=== PATIENT | female | born 1965 | race Caucasian/White ===

== ENCOUNTER 2023-11-18 10:42 | Emergency (ER) | payer SELFPAY ==
--- NOTE | 2023-11-18 10:58 | ED.SKABFB ---
HPI - Skin/Abscess/Foreign Bdy General Chief complaint: Extremity Problem,Nontraumatic Stated complaint: Lower right extremity pain and swelling Time Seen by Provider: 11/18/23 10:58 Source: patient Mode of arrival: ambulatory Limitations: no limitations History of Present Illness HPI narrative: Patient is a 58-year-old female that presents with right lower extremity pain and swelling. Patient reports it feels and looks like last time she had cellulitis. Patient states she ended up in the hospital last time for IV antibiotics. Denies any numbness, tingling or weakness to distal portion of the leg. Related Data Home Medications Medication Instructions Recorded Confirmed citalopram 10 mg tablet 10 mg PO DAILY 11/18/23 11/18/23 Allergies Allergy/AdvReac Type Severity Reaction Status Date / Time No Known Allergies Allergy Verified 11/18/23 11:15 Review of Systems Review of Systems: All systems reviewed & are unremarkable except as noted in HPI and below Constitutional: Constitutional: Denies body ache(s), Denies chills, Denies fatigue, Denies fever(s), Denies headache(s), Denies malaise and Denies weakness Eyes: Eyes: Denies blurry vision, Denies irritation and Denies loss of vision ENT: Denies otalgia, Denies headache(s), Denies nasal discharge, Denies sinus pain and Denies sore throat Cardiovascular: Cardiovascular: Denies chest pain, Denies irregular heart rhythm and Denies dyspnea Respiratory: Respiratory: Denies dyspnea Gastrointestinal: Gastrointestinal: Denies abdominal pain, Denies melena, Denies hematochezia, Denies diarrhea, Denies nausea and Denies vomiting Musculoskeletal: Musculoskeletal: Denies back pain, Denies myalgias and Denies arthralgias Integumentary/Breasts: Skin/Breast: Denies pruritus, Reports erythema, Denies rash, Reports skin pain and Reports skin swelling Neurologic: Denies headache(s), Denies loss of vision and Denies weakness Psychiatric: Psychiatric: Reports no additional psychiatric complaints Endocrine: Endocrine: Denies fatigue PMFSH Comments At time of signature, agree with nursing past medical, surgical, social and family history. There is no relevant family history pertinent to the presenting complaint. Exam Const: General: cooperative, healthy appearing, comfortable, no acute distress and well nourished Nutritional Appearance: well nourished Orientation/consciousness: patient oriented x3 Limitations: no limitations HENMT: Head: normal to inspection, normocephalic and atraumatic Ears: hearing grossly normal bilaterally and external ears normal Face/Nose/Sinus: Normal external nose present, normal facial exam and face symmetric Face and sinus: normal facial exam and face symmetric Mouth: Yes lip normal Eyes: General: appearance normal, both eyes and all related structures Alignment and Position: alignment normal and position normal Periorbital: periorbital findings normal Eyelids: eyelids normal Pupils: Equal, round and reactive pupils present EOM: EOMs intact bilaterally Neck: Neck: normal visual inspection, full ROM and supple Chest: Chest palpation & inspection: normal inspection of the chest Resp: Effort & Inspection: normal respiratory effort and able to speak in complete sentences Auscultation: clear to auscultation bilaterally Cardio: Rate: tachycardic Rhythm: regular rhythm Heart sounds: S1 normal heart sound present and S2 normal heart sound present GI: Inspection: normal to inspection Skin: General skin exam: normal color and no rashes or lesions noted Neuro: General: patient oriented x3 and moves all extremities Cranial nerves: Yes Equal, round and reactive pupils present Speech: normal speech Gait exam (Neuro): Normal gait present Extrem: General: normal to inspection, full ROM and no edema Right lower extremity: lower leg Details: erythema Location: of the mid lower leg Location: anteromedially and of the distal lower leg Location: anterome
[2023-11-18 11:14] VITALS: BP 122/71; PULSE 109; RESP 16; TEMP 36.8; O2SAT 98
[2023-11-18 11:16] VITALS: BP 122/71; PULSE 109; RESP 16; TEMP 36.8; O2SAT 98
== END 2023-11-18 11:45 | disposition home or self-care (01) ==
PROVIDERS: Emergency Provider Nurse Practitioner Family; PCP Family Medicine
DX: L03.115 Cellulitis of right lower limb (principal); F41.9 Anxiety disorder, unspecified; F32.A Depression, unspecified
CPT/HCPCS: 99213; G0463

== ENCOUNTER 2024-06-16 10:07 | Emergency (ER) | payer SELFPAY ==
--- NOTE | 2024-06-16 10:18 | ED_ITS ---
HPI - URI/Sore Throat General Chief Complaint: Upper Respiratory Infection Stated Complaint: coughing and congestion Time Seen by Provider: 06/16/24 10:30 Source: patient Mode of arrival: ambulatory Limitations: no limitations History of Present Illness HPI Narrative: Valerie is a 59-year-old female patient presenting to the clinic today with complaints of cough, chest congestion, and sinus congestion x3 weeks. She reports no fever or chills. Is coughing up green and brown phlegm. States she has lost sinus pressure. Denies any chest pain or shortness of breath. MD elicited complaint: sore throat and nasal congestion Related Data Home Medications ?Medication ?Instructions ?Recorded ?Confirmed ?Last Taken ?Type citalopram 10 mg tablet 10 mg PO DAILY 11/18/23 11/18/23 Unknown History Allergies Allergy/AdvReac Type Severity Reaction Status Date / Time No Known Allergies Allergy Verified 06/16/24 10:23 Review of Systems Review of Systems: Pertinent positives per HPI. Patient denies any fever, chills, rash, headache, visual changes, dizziness, shortness of breath, chest pain, palpitations, nausea, vomiting, diarrhea, constipation, abdominal pain, or any urinary issues. PMFSH Comments At the time of my signature, I reviewed and agree with the nursing past medical, surgical, social, and family history. There is no relevant family history pertinent to the patient complaint. Exam Narrative: General: Well-developed, obese, in no apparent distress Head: Normocephalic, atraumatic Eyes: Pupils equally round and reactive to light bilaterally, EOM intact, sclera and conjunctive clear, no discharge, lids normal Ears: TMs intact and congested, ear canals clear, no drainage, grossly hearing normal. Nose: Nares patent, yellow nasal discharge, moderate inflammation, maxillary sinus tenderness. Mouth: Oral pharynx red without lesions or masses, good dentition, MMM. Postnasal drip Neck: Supple, trachea midline, no enlargement of anterior or posterior cervical nodes, no thyroid masses or goiter palpable. Cardio: Regular rate and rhythm, s1 and s2 normal, no murmur appreciated. Resp: Faint expiratory wheezing and rhonchi, no rales or rubs Course Course Emergency Course: Portions of this record may have been created with voice recognition software. Level of Care: Express Care Visit Vital Signs Vital signs: Vital signs reviewed MDM - URI/Sore Throat MDM Narrative Medical decision making narrative: At the time of visit patient is resting comfortably on the exam table. Patient appears to be nontoxic. Plan: I suspect patient has sinusitis bronchitis. Prescription for albuterol inhaler, prednisone, doxycycline, and Tessalon Perles was sent to the pharmacy. Supportive measures were discussed with the patient and they voiced understanding discharge instructions and agrees to treatment plan. Return precautions reviewed Differential Diagnosis Differential diagnosis: Likely upper respiratory infection, otitis media, sinusitis, viral infection, bronchitis, influenza, pharyngitis and other (COVID) Discharge Plan Discharge Clinical Impression: Sinobronchitis Patient Disposition: Home, Self-Care Condition: Stable Instructions: Antibiotic Form, Acute Bronchitis (ED), Rhinosinusitis (ED) Additional Instructions: Take prescription medications only as prescribed-doxycycline, Tessalon Perles, prednisone, and albuterol inhaler Increase fluids and stay well hydrated Tylenol/motrin for pain/fever Flonase and OTC antihistamines as directed Vicks vapor rub to open sinuses Sinus rinses for congestion Cepacol spray, cough drops, throat lozenges, warm tea with honey/lemon, gargle salt water to soothe throat BRAT diet for diarrhea Clear liquids x 24 hours then advance as tolerated for nausea/vomiting Go to the ED if you develop a worsening in your condition- high fever not controlled by Tylenol or Motrin, dehydration, weakness, lethargy, shortness of breath, or chest pain. Follow up with your PCP in 3-5 days if symptoms persist. Patient Language: Egyptian Prescriptions: New benzonatate 200 mg capsule 200 mg PO TID 7 Days Qty: 21 0RF prednisone 20 mg tablet 40 mg PO DAILY 5 Days Qty: 10 0RF doxycycline monohydrate 100 mg capsule 100 mg PO BID 10 Days Qty: 20 0RF albuterol sulfate 90 mcg/actuation HFA aerosol inhaler 2 puff inhalation Q4-6H PRN (Reason: shortness of breath or wheezing) 30 Days Qty: 8.5 0RF No Action citalopram 10 mg tablet 10 mg PO DAILY clindamycin HCl 300 mg capsule 300 mg PO Q8H 10 Days Qty: 30 0RF doxycycline monohydrate 100 mg tablet 100 mg PO BID 10 Days Qty: 20 0RF Follow-up/Referrals: Harms,Vincenzo Boykin M.D. [Primary Care Provider] - Time of Disposition: 10:35 Quality NIHSS Nursing Documentation ED NIHSS nursing documentation: reviewed/agree
[2024-06-16 10:24] VITALS: BP 143/87; PULSE 97; RESP 20; TEMP 36.1; O2SAT 97
== END 2024-06-16 10:38 | disposition home or self-care (01) ==
PROVIDERS: Emergency Provider Nurse Practitioner Family; PCP Family Medicine
DX: J32.9 Chronic sinusitis, unspecified (principal); J40 Bronchitis, not specified as acute or chronic; F41.9 Anxiety disorder, unspecified; F32.A Depression, unspecified
CPT/HCPCS: 99213; G0463

== ENCOUNTER 2025-03-07 08:03 | Emergency (ER) | payer OTHER, SELFPAY ==
--- OUTSIDE RECORDS SUMMARY | 2025-03-07 08:09 | XMS_ITS | Encounter Summary ---
Author Organization [facility] Address [address] [place] [address] Care Team Providers Care Class A Regional Drivers Name Role Phone Vincenzo Valencia MD Primary Care Provider [phone] Gael Espinal MD Primary Care Provider [phone]- [phone] Vincenzo Valencia MD Primary Care Provider [phone] Encounter Details Date Type Department Care Team (Late st Contact Info) Description 08/26/2021 Telephone [facility] [address] [place] [id number] Cristine Tony, MARVA Social History Tobacco Use Types Packs/Day Years Used Date Smoking Tobacco: Every Day Cigarettes Smokeless Tobacco: Never Comments:Smoking History Pac ks/day: 0.5 Packs Alcohol Use Standard Drinks/Week Comments No 0 (1 standard drink = 0.6 oz pur e alcohol) PHQ-2 Answer Date Recorded PHQ-2 Total Score (If total score is 3 or more points, staff should administer the PHQ-9) 0 08/18/2021 Comments No Sex and Gender Information Value Date Recorded Sex Assigned at Not on file Legal 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 Gender Identity Female 08/28/2023 8:07 PM CDT Sexual Orientation Not on file documented as of this encounter Plan of Treatment Not on file documented as of this encounter Visit Diagnoses Not on filedocumented in this encounter Care Teams Class A Regional Drivers Relationship Specialty Start Date End Date Vincenzo [place] [address] [address] PCP - General Family Medicine 08/18/21 03/11/23 Gael Espinal MD [address] [facility] [place] [address] PCP - General Obstetrics and Gynecology 03/12/2308/05 Vincenzo Valencia MD [address] [place] [address] PCP - General Family Medicine 08/30/23 documented as of this encounter
--- OUTSIDE RECORDS SUMMARY | 2025-03-07 08:09 | XMS_ITS | Clinical Summary ---
Author Organization [facility] Address [address] [place] [address] Phone Care Team Providers Care Animal Care Giver Name Role Phone Provider, None Primary Care Provider Unavailabl e Social History Tobacco Use Types Packs/Day Years Used Date Smoking Tobacco: Never Assessed Comments No Sex and Gender Information Value Date Recorded Sex Assigned at Not on file Legal Sex Female 7:05 PM CDT Gender Identity Not on file Sexual Orientation Not on file Plan of Treatment Health Maintenance Due Date Last Done Comments Hepatitis C Virus (HCV) Screening 1966 Hepatitis B Immunization (1 of 3 - 19+ 3-dose series) 1985 Pap Smear 1987 Cervical Cancer Screening (CCS) 1996 HPV/Cotest 1996 Cologuard 2011 Colonoscopy 2011 Pneumococcal Immunization (5 0+ years) (1 of 1 - PCV) 2016 Zoster Immunization (1 of 2) 2016 Colorectal Cancer Screening 05/15/2020 Immunochemical Fecal Occult Blood 05/15/2020 05/15/2019 Influenza Immunization (#1) 2025 SARS-COV-2 Immunization ( - season) 2025 Respiratory Syncytial Virus (RSV) Immunization (Adult) (1 - 1-dose 75+ series) 2041 DTaP/Tdap/Td Immunization Discontinued 06/30/2015 TdaP Immunization Completed 06/30/2015 Mammogram Discontinued 05/19/2019, 05/01/2018 Human Papillomavirus (HPV) Immunization Aged Out No longer eligible based on patient's age to complete this topic Meningococcal Immunization (ACWY) Aged Out No longer eligible based on patient's age to complete this topic Rotavirus Immunization Aged Out No lo nger eligible based on patient's age to complete this topic Procedures Procedure Name Priority Date/Time Associated Diagnosis Comments VIANNEY SCREENING BILATERAL DIGITAL W CAD W EMILIA Routine 05/19/2019 8:38 AM Visit for screening mammogram from Last 3 Months or Most Recently Relevant to Health Maintenance Results * VIANNEY SCREENING BILATERAL DIGITAL W CAD W EMILIA (05/19/2019 8:38 AM ) Anatomical Region Laterality Modality breast Bilateral Mammography 05/19/2019 8:15 AM Narrative 05/21/2019 11:58 AM - VIANNEY SCREENING BILATERAL DIGITAL W CAD W EMILIA BILATERAL DIGITAL SCREENING MAMMOGRAM 3D/2D WITH CAD WITH MEDIOLATERAL OBLIQUE CRANIOCAUDAL: 05/19/2019 The study was acquired using digital technology and interpreted from soft copy. Current study was also evaluated with ICAD version 7.2. CLINICAL: Routine screening. Patient has no complaints. No personal history of cancer. No family history of breast cancer. COMPARISONS: Comparison is made to exams dated: 05/01/2018, 04/13/2014, and 09/27/2011 [facility]. BREAST TISSUE:The tissue of both breasts is predominantly fatty. FINDINGS: There is a biopsy clip in the left breast. No significant masses, calcifications, or other findings are seen in either breast. There has been no significant interval change. IMPRESSION: BI-RAD 1 NEGATIVE There is no mammographic evidence of malignancy. A 1 year screening mammogram is recommended. The patient has been or will be contacted. The patient will be entered into a reminder system with a target due date of 1 year for her next screening exam. Electronically signed by: Alpa tony/lily:05/21/2019 09:15:48 Chemical Tank Worker: Teodora YEUNG)(Maged), [facility] letter sent: Normal Exam Reading location: [facility] BI-RADS: 1 Negative Procedure Note Alpa Batista MD - 05/21/2019 - VIANNEY SCREENING BILATERAL DIGITAL W CAD W EMILIA BILATERAL DIGITAL SCREENING MAMMOGRAM 3D/2D WITH CAD WITH MEDIOLATERAL OBLIQUE CRANIOCAUDAL: 05/19/2019 The study was acquired using digital technology and interpreted from soft copy. Current study was also evaluated with ICAD version 7.2. CLINICAL: Routine screening. Patient has no complaints. No personal history of cancer. No family history of breast cancer. COMPARISONS: Comparison is made to exams dated: 05/01/2018, 04/13/2014, and 09/27/2011 [facility]. BREAST TISSUE:The tissue of both breasts is predominantly fatty. FINDINGS: There is a biopsy clip in the left breast. No significant masses, calcifications, or other findings are seen in either breast. There has been no significant interval change. IMPRESSION: BI-RAD 1 NEGATIVE There is no mammographic evidence of malignancy. A 1 year screening mammogram is recommended. The patient has been or will be contacted. The patient will be entered into a reminder system with a target due date of 1 year for her next screening exam. Electronically signed by: Alpa Batista M.D. rb/penrad:05/21/2019 09:15:48 Chemical Tank Worker: Teodora JOAQUIN(Shannon)(Maged), [facility] letter sent: Normal Exam Reading location: [facility] BI-RADS: 1 Negative Gael Espinal MD IMG MAMMO ORDERABLES Final Result from Last 3 Months or Most Recently Relevant to Health Maintenance Insurance Care Teams Animal Care Giver Relationship Specialty Start Date End Date Provider, None [place] PCP - General 05/01/18
--- OUTSIDE RECORDS SUMMARY | 2025-03-07 08:09 | XMS_ITS | Clinical Summary ---
Author Organization [facility] Address [address] [place] [address] Care Team Providers Care Steam Fitter Supervisor Maintenance Name Role Phone Vincenzo Valencia MD Primary Care Provider [phone] Allergies No known active allergies Medications multivitamin with iron tablet Take 1 tablet by mouth daily Active citalopram (CeleXA) 10 mg tablet Take 1 tablet (10 mg total) by mouth daily 90 tablet 1 02/05/2025 6 Active Active Problems Problem Noted Date Diagnosed Date BMI 40.0-44.9, adult 09/04/2024 Assessment & Plan (09/04/2024 8:12 AM CDT): Encourage 150min/week aerobic exercise. Healthy food choices. COngratulate on walking program with SOP Morbid obesity with BMI of 40.0-44.9, adult 0406/2024 Assessment & Plan (09/04/2024 8:12 AM CDT): As above. Lipid screening 09/04/2024 Assessment & Plan (09/04/2024 8:13 AM CDT): Labowkr ordered and pending. Annual physical exam 09/04/2024 Assessment & Plan (09/04/2024 8:13 AM CDT): FOcus of exam is preventative in nature. Reviewed immunization, reivewed sun/skin cancer screening. Reivewed colon/breast cancer screening. Reviewed lung cancer screening with LDCT and will follow response. Tobacco dependence 09/04/2024 Assessment & Plan (09/04/2024 8:14 AM CDT): Contemplative. Reivewed LDCT lung cancer screening and will montior repsonse. Pastient interested in pursuing when insurance becomes active. Recurrent major depression 08/30/2023 Assessment & Plan (09/04/2024 8:12 AM CDT): Continues on citalopram and will monitor response. NO side effects, strong family support and will monitor response. No pathologic diagnosis 10/20/2013 Overview (09/10/2016): No diagnosis Immunizations Immunization Administration Dates Next Due Influenza, Unspecified 09/04/2024(Deferr ed: Patient Refused),08/30/2023(Deferred: Patient Refused),06/06/2023(Deferred: Patient Refused),06/06/2022(Deferred: Patient Refused),03/19/2022(Deferred: Patient Refused),08/18/2021(Deferred: Patient Refused),06/06/2020(Deferred: Patient Refused) Tdap 06/30/2015 Surgical History Surgery Date Site/Laterality Comments OTHER SURGICAL HISTORY Menorrhagia: endometrial ablation OTHER SURGICAL HISTORY Abnl pap: Cryotherapy of the cervix OTHER SURGICAL HISTORY L/S BTL BREAST LUMPECTOMY Left benign, around 2009 SKIN LESION EXCISION removal skin lesion cheek Medical History Medical History Date Comments Hx Other Medical Menorrhagia Hx Other Medical Abnl pap Family History Medical History Relation Name Comments Macular degeneration Maternal Grandmother macular degeneration; Breast cancer Neg Hx Colon cancer Neg Hx Ovarian cancer Neg Hx Uterine cancer Neg Hx Relation Name Status Comments Maternal Grandmother Social History Tobacco Use Types Packs/Day Years Used Date Smoking Tobacco: Every Day Cigarettes 0.8 34.8 Started: 1990 Smokeless Tobacco: Never Tobacco Cessation:Ready to Q uit: Not Asked; Counseling Given: Not Answered Comments:Smoking History Packs/day: 0.5 Packs Alcohol Use Standard Drinks/Week Comments No 0 (1 standard drink = 0.6 oz pur e alcohol) PHQ-2 Answer Date Recorded PHQ-2 Total Score (If total score is 3 or more points, staff should administer the PHQ-9) 0 09/04/2024 Comments No Sex and Gender Information Value Date Recorded Sex Assigned at Not on file Legal Sex Female 1:41 AM 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 Gender Identity Female 08/28/2023 8:07 PM CDT Sexual Orientation Not on file Obstetrics History Para Term AB IAB SAB Ectopic Multiple Livin g Live Births 0 0 0 0 0 0 0 0 0 0 0 Last Filed Vital Signs Vital Sign Reading Time Taken Comments Blood Pressure 126/80 10/30/2024 10:04 AM CDT Pulse 74 09/04/2024 7:56 AM CDT Temperature 36.8 C (98.2 F) 09/04/2024 7:56 AM CDT Respiratory Rate - - Oxygen Saturation 98% 09/04/2024 7:56 AM CDT Inhaled Oxygen Concentration - - Weight 122.5 kg (270 lb) 10/30/2024 10:04 AM CDT Height 167.6 cm (5' 6) 10/30/2024 10:04 AM CDT Body Mass Index 43.58 10/30/2024 10:04 AM CDT Plan of Treatment Health Maintenance Due Date Last Done Comments Hepatitis C Screening 1965 Hepatitis B Screening 1984 Pneumococcal vaccine <65 (1 of 2 - PCV) 1985 Zoster Vaccine (1 of 2) 2016 Lung Cancer Screening 01/09/2024 01/08/2023, 022 Breast Cancer Screening-Mammogram 03/12/2024 03/12/2023, 07/11/2021, 05/19/2019, Additional history exists Colon Cancer Screening-DNA Stool 09/06/2024 09/07/19 22, 05/15/2016 Influenza Vaccine (#1) 2025 DTaP/Tdap/Td Vaccine (2 - Td or Tdap) 06/30/2025 06/30/2015 Depression Screening 09/04/2025 09/04/2024, 08/30/2023, 09/20/2022, Additional history exists Cervical Cancer Screening 10/30/20252024, 09/20/2022, 06/16/2021, Additional history exists Regular Well Visit/Exam 18-64 10/30/2025, 09/04/2024, 09/20/2022, Additional history exists Colon Cancer Screening-CT Colonography Discontinued 05/15/2016 Colon Cancer Screening-Colonoscopy Discontinued 05/15/2016 Colon Cancer Screening-Sigmoidoscopy Discontinued 05/15/2016 Colon Cancer Screening-FIT Discontinued 09/06/2021, Procedures Procedure Name Priority Date/Time Associated Diagnosis Comments PAP WITH REFLEX TO HIGH RISK HPV Routine 10/30/2024 8:38 AM CDT Well woman exam SCREENING MAMMOGRAM BILATERAL W MALCOM Schedule Routine, Read Routine (OP Routine) 03/12/2023 9:15 AM CDT Screening mammogram, encounter for CT LUNG CANCER SCREENING Schedule Routine, Read Routine (OP Routine) 01/08/2023 8:26 AM CDT Personal history of nicotine dependence STOOL DNA COLOGUARD Routine 09/06/2021 5:45 AM CDT Colon cancer screening HM COLONOSCOPY Routine 05/15/2016 from Last 3 Months or Most Recently Relevant to Health Maintenance Results * Pap with reflex to High Risk HPV and Genotyping (Cytology Component) (10/30/2024 8:38 AM CDT) Thin prep (Pap test) 10/30/2024 8:38 AM CDT 10/30/2024 8:38 AM CDT Narrative PATHOLOGY CH - 11/01/2024 3:58 PM CDT [facility] Department of Pathology [address] [place] [id number] Final Report Note to Patients: This report may contain a detailed description of human tissue sent by a health care provider to the laboratory for pathologic evaluation. The content of this report is essential for diagnosis and may provide important critical findings. This information may be unfamiliar to patients to review without a medical professional present. It is advised that the patient review this report in the presence of a health care provider who can answer questions and explain the details. Patient Name: VALERIE QUINONES Address: [address] [place] [id number] Gender: F : 1965 (Age: 59) Service: Location: [facility] #: [id number] Patient Type: SPECIMEN Taken: 10/30/2024 Received: 10/30/2024 Accessioned:: 10/31/2024 Reported: 11/01/2024 Physician(s): Raman Hernández M.D. Diagnosis: SOURCE OF SPECIMEN Imaged Thinprep Pap Test w/ Reflex HPV - Township Clerk Cytologic Material: STATEMENT OF ADEQUACY - Satisfactory for evaluation; endocervical/transformation zone component present GENERAL CATEGORIZATION: - Negative for intraepithelial lesion or malignancy JOSE Rosen(ASCP) Report Electronically Reviewed and Signed Out By JOSE Rosen(ASCP) 11/01/2024 15:58:25Specimen(s) Received: A: Imaged Thinprep Pap Test w/ Reflex HPV - Township Clerk Cytologic Material Clinical History: Menstrual History: Ablation The Pap test is a screening test used to aid in the detection of cervical cancer and its precursors. It should not be the sole means by which malignant and premalignant lesions are diagnosed. Both false negative and false positive results may occur. It also has poor sensitivity for the detection of endometrial lesions and should not be used to evaluate suspected endometrial abnormalities. For these reasons it is most important to obtain Pap tests at regular intervals. The performance characteristics of some immunohistochemical stains, fluorescence in-situ hybridization tests and immunophenotyping by flow cytometry cited in this report (if any) were determined by the Surgical Pathology Department at [facility] as part of an ongoing quality internship program and in compliance with federally mandated regulations drawn from the Clinical Laboratory Improvement Act of 1988 (CLIA '88). Some of these tests rely on the use of analyte specific reagents and are subject to specific labeling requirements by the US Food and Drug Administration. Such diagnostic tests may only be performed in a facility that is certified by the Department of Health and Human Services as a high complexity laboratory under CLIA '88. The FDA has determined that such clearance or approval is not necessary. This test is used for clinical purposes. It should not be regarded as investigational or for research. Nevertheless, federal rules concerning the medical use of analyte specific reagents require that the following disclaimer be attached to the report: This test was developed and its performance characteristics determined by the Surgical Pathology Department [facility]. It has not been cleared or approved by the U. S. Food and Drug Administration. Gael Espinal MD LAB CYTOLOGY ORDERABLES Fi nal Result PATHOLOGY [id number] [place] [address] * Screening Mammogram Bilateral W Malcom (03/12/2023 9:15 AM CDT) Anatomical Region Laterality Modality Breast Bilateral Mammography Impressions 03/12/2023 3:34 PM CDT BI-RADS ATLAS category (overall): 1 - Negative There is no mammographic evidence of malignancy. A 1 year screening mammogram is recommended. The patient has been or will be contacted. We recommend annual screening mammography for women at average risk of breast cancer beginning at age 40, based on guidelines of the [place] College of Radiology (ACR Practice Parameter for the Performance of Screening and Diagnostic Mammography) and [place] College of Obstetricians and Gynecologists. For women with and elevated risk of breast cancer, please refer to the ACR Practice Parameter for specific screening recommendations. The patient will be entered into a reminder system with a target due date of 1 year for her next screening exam. Narrative 03/12/2023 3:34 PM CDT Screening Mammogram Bilateral W Malcom: 03/12/23 The study was acquired using full field digital technology and interpreted from soft copy. 2D digital mammographic views, as well as 3D digital tomosynthesis were performed in the CC and MLO projections. CLINICAL: Screening mammogram, encounter for. No relevant medical history has been documented for this patient. History of breast cancer in Neg Hx. COMPARISONS: 07/11/2021 SCREENING MAMMOGRAM BILATERAL W MALCOM 05/19/2019 Breast Imaging Outside Reference 05/01/2018 Breast Imaging Outside Reference 04/13/2014 Breast Imaging Outside Reference BREAST TISSUE: The breasts are almost entirely fatty. FINDINGS: There is a biopsy clip in the left breast. No suspicious masses, suspicious calcifications, or other suspicious findings are seen within either breast. There has been no suspicious change. us Self Screening Mammogram IMG MAMMO PROCEDURES Fi nal Result * CT Lung Cancer Screening (01/08/2023 8:26 AM CDT) Anatomical Region Laterality Modality Chest N/A Computed Tomogra phy 01/10/2023 10:2 5 AM CDT Narrative 01/10/2023 10:53 AM CDT EXAM DESCRIPTION: CT LUNG CANCER SCREENING REASON FOR STUDY: Screening CT of the chest in a current smoker with a 23.25 pack year smoking history. Additional history: None. TECHNIQUE: Low dose CT scan of the chest was performed without intravenous contrast using helical scanning technique. The exam extends from the lung apices through the lung bases. Automatic exposure control was used as a dose optimization technique. NOTE: This study was performed for the specific purposes of lung cancer screening and is not an alternative to diagnostic chest CT. RADIATION DOSE: CT dose index volume (CTDIvol) = 2.36 mGy COMPARISON: 12/19/2021 FINDINGS: SMOKING RELATED LUNG DISEASE: Mild emphysema. LUNG NODULES: Stable 2 mm right upper lobe nodule (123). Stable 4 mm lingula nodule (138). OTHER: No consolidation, pleural effusion or pneumothorax. Prominent mediastinal lymph nodes are grossly stable. No hilar lymphadenopathy. The heart is normal in size. No significant coronary artery calcification. Aorta is normal caliber. Prominent axillary lymph nodes are unchanged. No chest wall mass is seen. Images of the upper abdomen demonstrate no gross abnormality. Bone windows demonstrate no suspicious lytic or sclerotic lesion. No acute fracture seen. IMPRESSION: 1. Grossly stable pulmonary nodules compared to 12/19/2021. Lung-RADS category 2: Benign appearance or behavior. Recommendation: Low dose Screening CT of chest in 12 months. THIS IS AN ELECTRONICALLY VERIFIED FINAL REPORT 01/10/2023 10:53 AM - Electronically signed by Dane Grover M.D. AG: MELANI Report ID: [id number] Reading Location: [id number] Procedure Note Dane Grover MD - 01/10/2023 EXAM DESCRIPTION: CT LUNG CANCER SCREENING REASON FOR STUDY: Screening CT of the chest in a current smoker with a 23.25 pack year smoking history. Additional history: None. TECHNIQUE: Low dose CT scan of the chest was performed without intravenous contrast using helical scanning technique. The exam extends from the lung apices through the lung bases. Automatic exposure control was used as adose optimization technique. NOTE: This study was performed for the specific purposes of lung cancer screening and is not an alternative to diagnostic chest CT. RADIATION DOSE: CT dose index volume (CTDIvol) = 2.36 mGy COMPARISON: 12/19/2021 FINDINGS: SMOKING RELATED LUNG DISEASE: Mild emphysema. LUNG NODULES: Stable 2 mm right upper lobe nodule (123). Stable 4 mm lingula nodule (138). OTHER: No consolidation, pleural effusion or pneumothorax. Prominent mediastinal lymph nodes are grossly stable. No hilar lymphadenopathy.The heart is normal in size. No significant coronary artery calcification.Aorta is normal caliber. Prominent axillary lymph nodes are unchanged. Nochest wall mass is seen. Images of the upper abdomen demonstrate no gross abnormality. Bone windows demonstrate no suspicious lytic or sclerotic lesion. No acute fracture seen. IMPRESSION: 1. Grossly stable pulmonary nodules compared to 12/19/2021. Lung-RADS category 2: Benign appearance or behavior. Recommendation: Low dose Screening CT of chest in 12 months. THIS IS AN ELECTRONICALLY VERIFIED FINAL REPORT 01/10/2023 10:53 AM - Electronically signed by Dane Grover M.D. AG: MELANI Report ID: [id number] Reading Location: [place] [address] Vincenzo Valencia MD [facility] [place] PROCEDURES Final R esult * Stool DNA - Cologuard (09/06/2021 5:45 AM CDT) Stool DNA - Cologuard Negative Negative [facility] (CLIA #:[id number]) Comment: NEGATIVE TEST RESULT. A negative Cologuard result indicates a low likelihood that a colorectal cancer (CRC) or advanced adenoma (adenomatous polyps with more advanced pre-malignant features) is present. The chance that a person with a negative Cologuard test has a colorectal cancer is less than 1 in 1500 (negative predictive value >99.9%) or has an advanced adenoma is less than 5.3% (negative predictive value 94.7%). These data are based on a prospective cross-sectional study of 10,000 individuals at average risk for colorectal cancer who were screened with both Cologuard and colonoscopy. (Anastacia Shepherd al, N Engl J Med 2014;370(14):0137-7342) The normal value (reference range) for this assay is negative. COLOGUARD RE-SCREENING RECOMMENDATION: Periodic colorectal cancer screening is an important part of preventive healthcare for asymptomatic individuals at average risk for colorectal cancer. Following a negative Cologuard result, the Australian Cancer Society and U.S. Multi-Society Task Force screening guidelines recommend a Cologuard re-screening interval of 3 years. References: Australian Cancer Society Guideline for Colorectal Cancer Screening: https://www.cancer.org/cancer/oufjr-geosnp-adcsqg/ixsoclnnm-mcctmsvkg-oodxazq/ac s-rec ommendations.html.; Iraj DK, Vernon MYERS, Mitchell GonzalezK, Colorectal Cancer Screening: Recommendations for Physicians and Patients from the U.S. Multi-Society Task Force on Colorectal Cancer Screening , Am J Gastroenterology 2017; 112:2534-9519. TEST DESCRIPTION: Composite algorithmic analysis of stool DNA-biomarkers with hemoglobin immunoassay. Quantitative values of individual biomarkers are not reportable and are not associated with individual biomarker result reference ranges. Cologuard is intended for colorectal cancer screening of adults of either sex, 45 years or older, who are at average-risk for colorectal cancer (CRC). Cologuard has been approved for use by the U.S. FDA. The performance of Cologuard was established in a cross sectional study of average-risk adults aged 50-84. Cologuard performance in patients ages 45 to 49 years was estimated by sub-group analysis of near-age groups. Colonoscopies performed for a positive result may find as the most clinically significant lesion: colorectal cancer [4.0%], advanced adenoma (including sessile serrated polyps greater than or equal to 1cm diameter) [20%] or non- advanced adenoma [31%]; or no colorectal neoplasia [45%]. These estimates are derived from a prospective cross-sectional screening study of 10,000 individuals at average risk for colorectal cancer who were screened with both Cologuard and colonoscopy. (Anastacia Bryan et al, N Engl J Med 2014;370(14):2455-5201.) Cologuard may produce a false negative or false positive result (no colorectal cancer or precancerous polyp present at colonoscopy follow up). A negative Cologuard test result does not guarantee the absence of CRC or advanced adenoma (pre-cancer). The current Cologuard screening interval is every 3 years. (Australian Cancer Society and U.S. Multi-Society Task Force). Cologuard performance data in a 10,000 patient pivotal study using colonoscopy as the reference method can be accessed at the following location: www.[employer].NearVerse/results. Additional description of the Cologuard test process, warnings and precautions can be found at www.cologuard.[email or web address]. Stool 09/06/2021 5:45 AM CDT 09/08/2021 11:30 AM CDT Vincenzo Valencia MD LAB BODY FLUIDS AND STOOL S ORDERABLES Final Result [facility] (CLIA #:[id number]) [place] [address] * COLONOSCOPY (05/15/2016) Colonoscopy Normal Comment:Cologard Historical Provider HEALTH MAINTENANCE Final Result from Last 3 Months or Most Recently Relevant to Health Maintenance Insurance * Guarantor: Valerie Quinones Account Type Relation to Patient Date of Phone Billing Address Personal/Family Self [address] [address] REPLACED BY [facility] * Guarantor: Valerie Quinones Account Type Relation to Patient Date of Phone Billing Address Personal/Family Self [address] [address] Care Teams Steam Fitter Supervisor Maintenance Relationship Specialty Start Date End Date Vincenzo Valencia MD [address] [place] [address] PCP - General Family Medicine 08/30/23
--- OUTSIDE RECORDS SUMMARY | 2025-03-07 08:09 | XMS_ITS | Clinical Summary ---
Author Organization [facility] Address [address] [place] [address] Care Team Providers Care Dean Name Role Phone Unavailable Primary Care Provider Unavailabl e Source Comments [facility],non-owned Affiliates and Associated Physician Practices is amultiple site organization consisting of ambulatory clinics and hospital sitesin [place], [place], [place] and [place]. This disclosure is being madepursuant to the Care Everywhere program and may not contain all information available regarding this patient. Last updated 18.[employer] Allergies No known active allergies Medications * Be aware that medications may not be up to date on this document. Alwaysverify current medications with the patient. 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 Gender Identity Not on file Sexual Orientation Not on file Last Filed Vital Signs Vital Sign Reading Time Taken Comments Blood Pressure 138/88 06/16/2019 11:25 AM BOOTH USHER Pulse 93 06/16/2019 11:25 AM BOOTH USHER Temperature 36.8 C (98.3 F) 06/16/2019 11:25 AM BOOTH USHER Respiratory Rate 16 06/16/2019 11:25 AM BOOTH USHER Oxygen Saturation 98% 06/16/2019 11:25 AM BOOTH USHER Inhaled Oxygen Concentration - - Weight 127 kg (280 lb) 06/16/2019 11:25 AM BOOTH USHER Height 170.2 cm (5' 7) 06/16/2019 11:25 AM BOOTH USHER Body Mass Index 43.85 06/16/2019 11:25 AM BOOTH USHER Plan of Treatment Health Maintenance Due Date Last Done Comments COLOGUARD (AGES 45-75) - COL ON CA SCREENING 1965 COLON MONITORING 1965 COLONOSCOPY - COLON CA SCREENING 1966 CT COLONOGRAPHY - COLON CA SCREENING 1965 FLEX SIG - COLON CA SCREENING 1965 LIPID TESTING 1965 HIV SCREENING 1981 HEPATITIS C SCREENING 03/23/1984 DTAP/TDAP/TD VACCINES (1 - Tdap) 1985 HEPATITIS B VACCINE (1 of 3 - 19+ 3-dose series) 1985 PNEUMOCOCCAL VACCINE 50+ (1 of 1 - PCV) 2016 ZOSTER VACCINE (1 of 2) 2016 SCREENING FOR DIABETES 05/27/2019 Colorectal Cancer Screening 05/15/2020 FIT - COLON CA SCREENING 05/15/2020 05/15/2019 MAMMOGRAM 05/19/2021 05/19/2019 DEPRESSION SCREENING 06/06/2024 COVID-19 VACCINE (1 - 2023-2 5 season) 2025 INFLUENZA VACCINE (#1) 2025 HIB VACCINE Aged Out No longer eligi ble based on patient's age to complete this topic HPV VACCINE Aged Out No longer eligi ble based on patient's age to complete this topic MENINGOCOCCAL (Group B) VACC INE SHARED DECISION-MAKING Aged Out No longer eligibl e based on patient's age to complete this topic MENINGOCOCCAL GROUPS A/C/Y/W VACCINE Aged Out No longer eligible b ased on patient's age to complete this topic Insurance
[2025-03-07 08:15] VITALS: BP 142/68; PULSE 90; RESP 18; TEMP 36.8; O2SAT 99
--- NOTE | 2025-03-07 08:27 | ED.URI ---
HPI - URI/Sore Throat General Chief Complaint: Upper Respiratory Infection Stated Complaint: sinus Time Seen by Provider: 03/07/25 08:20 Source: patient and RN notes reviewed Mode of arrival: ambulatory Limitations: no limitations History of Present Illness HPI Narrative: Patient presents today with a 9-10 day history of cough, nasal congestion green nasal drainage, sinus pressure. Denies fever or shortness of breath. She has tried Mucinex, Sudafed, and DayQuil without much improvement. No history of asthma or COPD. Patient smokes half pack per day. Related Data Home Medications ?Medication ?Instructions ?Recorded ?Confirmed ?Last Taken ?Type citalopram 10 mg tablet 10 mg PO DAILY 11/18/23 11/18/23 Unknown History Allergies Allergy/AdvReac Type Severity Reaction Status Date / Time No Known Allergies Allergy Verified 03/07/25 08:16 [facility] Social History Social History (Updated 03/07/25 @ 08:28 by Lakeshia Last, [facility], ) Smoking status: Current every day smoker Tobacco type: cigarettes Comments At time of signature, I have reviewed and agree with nursing past medical, surgical, social and family history unless otherwise noted. Please see nursing chart for further information. There is no relevant family history pertinent to the presenting complaint Exam Narrative: GENERAL: Mildly ill-appearing, well-nourished, and in no acute distress. HEAD: Normocephalic, atraumatic. EYES: EOMI. No redness or drainage. Conjunctivae normal. ENT: Mucous membranes pink and moist. Nares congested with green purulent discharge. Bilateral frontal and maxillary sinus tenderness.. TMs normal bilaterally. Throat normal. Uvula midline. NECK: Normal AROM. Supple. No lymphadenopathy. CHEST: No respiratory distress. Clear to auscultation. HEART: Regular rate and rhythm. No murmur appreciated. EXTREMITIES: Normal range of motion. No edema. SKIN: Warm, dry, no rash. Capillary refill normal. Normal skin turgor. NEURO: No focal deficits. Alert and oriented x3. Gait steady. PSYCH: Normal affect. No signs of depression or anxiety. Course Course Level of Care: Express Care Visit Vital Signs Vital signs: Vital Signs Temperature 98.3 F 03/07/25 08:15 Pulse Rate 90 03/07/25 08:15 Respiratory Rate 18 03/07/25 08:15 Blood Pressure 142/68 H 03/07/25 08:15 Pulse Oximetry 99 03/07/25 08:15 Oxygen Delivery Room Air 03/07/25 08:15 Temperature 98.3 F 03/07/25 08:15 Pulse Rate 90 03/07/25 08:15 Respiratory Rate 18 03/07/25 08:15 Blood Pressure 142/68 H 03/07/25 08:15 Pulse Oximetry 99 03/07/25 08:15 Oxygen Delivery Room Air 03/07/25 08:15 Reviewed MDM - URI/Sore Throat MDM Narrative Medical decision making narrative: 59-year-old female presents today with a 9-10 day history of cough, nasal congestion green nasal drainage, sinus pressure. OTC medication without much improvement. Upon exam, patient has nasal congestion with purulent discharge, tender frontal and maxillary sinus tenderness bilaterally, and is mildly ill appearing. She will be treated with a course of Augmentin bacterial sinusitis. May continue OTC medication as needed. Recommend a steroid nasal spray. Vital signs stable. Patient agrees with plan. Anticipatory guidance given. Differential Diagnosis Differential diagnosis: Likely upper respiratory infection, sinusitis, viral infection, bronchitis and other (Pneumonia) Critical Care Time Critical Care Time Critical Care Time: No Discharge Plan Discharge Clinical Impression: Sinusitis Qualifiers: Sinusitis location: unspecified location Chronicity: acute Recurrence: non-recurrent Qualified Code(s): J01.90 - Acute sinusitis, unspecified Patient Disposition: Home Condition: Stable Instructions: Antibiotic Form, Sinusitis (ED) Additional Instructions: Please take the Augmentin as prescribed until gone. Continue OTC medication as needed for symptom control. Consider starting a steroid nasal spray such as Flonase. Follow-up with your PCP in 3 days if symptoms are not improving. Your blood pressure was elevated above 120/80 today at Urgent Care. This puts you above the threshold for follow up. Please schedule a followup visit with your personal physician as soon as possible, for further evaluation and treatment. Even blood pressure exceeding 120/80 may indicate pre-hypertension. Patient Language: Serbian Prescriptions: New amoxicillin-pot clavulanate 875-125 mg tablet 1 tablet PO Q12H 7 Days Qty: 14 0RF No Action citalopram 10 mg tablet 10 mg PO DAILY Follow-up/Referrals: Harms,Vincenzo K., M.D. [Primary Care Provider] Time of Disposition: 08:31
== END 2025-03-07 08:34 | disposition home or self-care (01) ==
PROVIDERS: Emergency Provider Nurse Practitioner; PCP Family Medicine
DX: J01.90 Acute sinusitis, unspecified (principal); F17.210 Nicotine dependence, cigarettes, uncomplicated
CPT/HCPCS: 99213; G0463

== ENCOUNTER 2025-04-27 09:43 | Emergency (ER) | payer OTHER, SELFPAY ==
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
[2025-04-27 09:34] VITALS: BP 168/90; PULSE 85; RESP 18; TEMP 36.6; O2SAT 98
--- OUTSIDE RECORDS SUMMARY | 2025-04-27 10:34 | XMS_ITS | Encounter Summary ---
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 Gender Identity Female 08/28/2023 8:07 PM CDT Sexual Orientation Not on file documented as of this encounter Plan of Treatment Not on file documented as of this encounter Visit Diagnoses Not on filedocumented in this encounter Care Teams Store Merchandiser Relationship Specialty Start Date End Date Vincen[place] [address] [address] PCP - General Family Medicine 08/18/21 03/11/23 Gael Espinal MD [address] [address] PCP - General Obstetrics and Gynecology 03/12/2308/05 Vincenzo Valencia MD [address] [place] [address] PCP - General Family Medicine 08/30/23 documented as of this encounter
--- OUTSIDE RECORDS SUMMARY | 2025-04-27 10:34 | XMS_ITS | Clinical Summary ---
Author Organization [facility] Address [address] [place] [address] Care Team Providers Care Systems Accountant Name Role Phone Unavailable Primary Care Provider Unavailabl e Source Comments [facility],non-owned Affiliates and Associated Physician Practices is amultiple site organization consisting of ambulatory clinics and hospital sitesin [place], [place], [place] and [place]. This disclosure is being madepursuant to the Care Everywhere program and may not contain all information available regarding this patient. 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 Gender Identity Not on file Sexual Orientation Not on file Last Filed Vital Signs Vital Sign Reading Time Taken Comments Blood Pressure 138/88 06/16/2019 11:25 AM CYLINDER INSPECTOR Pulse 93 06/16/2019 11:25 AM CYLINDER INSPECTOR Temperature 36.8 C (98.3 F) 06/16/2019 11:25 AM CYLINDER INSPECTOR Respiratory Rate 16 06/16/2019 11:25 AM CYLINDER INSPECTOR Oxygen Saturation 98% 06/16/2019 11:25 AM CYLINDER INSPECTOR Inhaled Oxygen Concentration - - Weight 127 kg (280 lb) 06/16/2019 11:25 AM CYLINDER INSPECTOR Height 170.2 cm (5' 7) 06/16/2019 11:25 AM CYLINDER INSPECTOR Body Mass Index 43.85 06/16/2019 11:25 AM CYLINDER INSPECTOR Plan of Treatment Health Maintenance Due Date Last Done Comments COLOGUARD (AGES 45-75) - COL ON CA SCREENING 1966 COLON MONITORING 1966 COLONOSCOPY - COLON CA SCREENING 1966 CT COLONOGRAPHY - COLON CA SCREENING 1966 Colorectal Cancer Screening 1966 FIT - COLON CA SCREENING 1966 FLEX SIG - COLON CA SCREENING 1966 LIPID TESTING 1966 HIV SCREENING 1981 HEPATITIS C SCREENING 03/23/1984 DTAP/TDAP/TD VACCINES (1 - Tdap) 1985 HEPATITIS B VACCINE (1 of 3 - 19+ 3-dose series) 1985 PAP SMEAR 1987 Cervical Cancer Screening 1996 PAP with HPV 1996 PNEUMOCOCCAL VACCINE 50+ (1 of 1 - PCV) 2016 ZOSTER VACCINE (1 of 2) 2016 SCREENING FOR DIABETES 05/27/2019 MAMMOGRAM 05/19/2021 05/19/2019 DEPRESSION SCREENING 06/06/2024 COVID-19 VACCINE (1 - 2024-2 6 season) 2025 INFLUENZA VACCINE (#1) 2025 HIB [...] patient's age to complete this topic Insurance [employer]
--- OUTSIDE RECORDS SUMMARY | 2025-04-27 10:34 | XMS_ITS | Clinical Summary ---
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 Patient Name: VALERIE QUINONES Address: [address] [place] [id number] Gender: F : 1965 (Age: 59) Service: Location: [facility] #: [id number] Patient Type: SPECIMEN Taken: 10/30/2024 Received: 10/30/2024 Accessioned:: 10/31/2024 Reported: 11/01/2024 Physician(s): Raman Hernández M.D. Diagnosis: SOURCE OF SPECIMEN Imaged Thinprep Pap Test w/ Reflex HPV - Lab Pack Chemist Cytologic Material: STATEMENT OF ADEQUACY - Satisfactory for evaluation; endocervical/transformation zone component present GENERAL CATEGORIZATION: - Negative for intraepithelial lesion or malignancy JOSE Rosen(ASCP) Report Electronically Reviewed and Signed Out By JOSE Rosen(ASCP) 11/01/2024 15:58:25Specimen(s) Received: A: Imaged Thinprep Pap Test w/ Reflex HPV - Lab Pack Chemist Cytologic Material Clinical History: Menstrual History: Ablation [...] determined by the Surgical Pathology Department at [facility] as part of an ongoing quality measurement specialist program and in compliance with federally mandated [...] characteristics determined by the Surgical Pathology Department [facility]. It has not been cleared or approved by the U. S. Food and Drug Administration. Gael Espinal MD LAB CYTOLOGY ORDERABLES Fi nal Result PATHOLOGY [address] [place] [address] * Screening Mammogram Bilateral W Malcom (03/12/2023 [...] age 40, based on guidelines of the [employer] (ACR Practice Parameter for the Performance of Screening and Diagnostic Mammography) and [employer]. For women [...] Dane Grover M.D. AG: MELANI Report ID: [id number] Reading Location: [id number] Procedure Note Dane Grover MD - 01/10/2023 [...] Dane Grover M.D. AG: MELANI Report ID: [id number] Reading Location: [place] [address] Vincenzo Valencia MD [facility] PROCEDURES Final R esult * Stool DNA - Cologuard (09/06/2021 5:45 AM CDT) Stool DNA - Cologuard Negative Negative [employer] (CLIA #:[id number]) Comment: NEGATIVE TEST RESULT. A negative Cologuard [...] (Anastacia Shepherd al, N Engl J Med 2014;370(14):7805-0128) The normal value (reference range) for this assay is negative. COLOGUARD RE-SCREENING RECOMMENDATION: Periodic colorectal cancer screening is an important part of preventive healthcare for asymptomatic individuals at average risk for colorectal cancer. Following a negative Cologuard result, the [place] [employer] and U.S. Multi-Society Task Force screening guidelines recommend a Cologuard re-screening interval of 3 years. References: [place] [employer] Guideline for Colorectal Cancer Screening: https://www.cancer.org/cancer/bbuhj-tjnvrd-emtioq/sovsrnevg-pcfeaqndr-icxnldu/ac s-rec ommendations.html.; Iraj DK, Vernon MYERS, Mitchell GonzalezK, Colorectal Cancer Screening: Recommendations for Physicians and Patients from the U.S. Multi-Society Task Force on Colorectal Cancer Screening , Am J Gastroenterology 2017; 112:3813-2057. TEST DESCRIPTION: Composite algorithmic analysis of stool [...] Bryan et al, N Engl J Med 2014;370(14):5734-5718.) Cologuard may produce a false negative or false positive result (no colorectal cancer or precancerous polyp present at colonoscopy follow up). A negative Cologuard test result does not guarantee the absence of CRC or advanced adenoma (pre-cancer). The current Cologuard screening interval is every 3 years. ([place] [employer] and U.S. Multi-Society Task Force). Cologuard performance data in a 10,000 patient pivotal study using colonoscopy as the reference method can be accessed at the following location: www.[employer]/results. Additional description of the Cologuard test process, warnings and precautions can be found at www.cologuard.com. Stool 09/06/2021 5:45 AM CDT 09/08/2021 11:30 AM CDT Vincenzo Valencia MD LAB BODY FLUIDS AND STOOL S ORDERABLES Final Result [facility] (CLIA #:[id number]) [place] [address] * COLONOSCOPY (05/15/2016) Colonoscopy Normal Comment:Cologard Historical Provider HEALTH MAINTENANCE Final Result from Last 3 Months or Most Recently Relevant to Health Maintenance Insurance [facility] Care Teams Neurosurgical Nurse Practitioner Relationship Specialty Start Date End Date Vincenzo Valencia MD [address] [place] [address] PCP - General Family Medicine 08/30/23
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
[2025-04-27 11:10] VITALS: BP 145/86; PULSE 72; RESP 16; O2SAT 98
== END 2025-04-27 11:11 | disposition home or self-care (01) ==
PROVIDERS: Emergency Provider Emergency Medicine; PCP Family Medicine
DX: S62.525A Nondisplaced fracture of distal phalanx of left thumb, initial encounter for closed fracture (principal); F17.210 Nicotine dependence, cigarettes, uncomplicated; V49.50XA Passenger injured in collision with unspecified motor vehicles in traffic accident, initial encounter
CPT/HCPCS: 29130; 73130; 99284